=== PATIENT | female | born 1970 | race Caucasian/White ===

== ENCOUNTER 2018-11-05 22:21 | Emergency (ER) | payer BC ==
[~2018-11-05] VITALS: Ht 175.3 cm; Wt 81.0 kg
[~2018-11-05 22:21] MED LIST: CYCL-1 PO
[2018-11-05] MEDS ORDERED: normal saline 1000ML IV soln IVB ONE ×2 (22:35→22:40)
[2018-11-05 22:53] LABS: BASOPHILS % (AUTO) 0.8 % (0-1); EOSINOPHILS # (AUTO) 0.1 X10'3 (0-0.9); EOSINOPHILS % (AUTO) 2.2 % (0-6); HEMATOCRIT 36.3 % (35.0-45.0); HEMOGLOBIN 12.4 g/dl (12.0-16.0); LYMPHOCYTES # (AUTO) 1.1 X10'3 (1.1-4.8); LYMPHOCYTES % (AUTO) 22.1 % (21-51); MEAN CORPUSCULAR HEMOGLOBIN 30.5 PG (27.0-31.0); MEAN CORPUSCULAR HGB CONC 34.1 g/dL (33.0-36.5); MEAN CORPUSCULAR VOLUME 89.4 FL (78-98); MEAN PLATELET VOLUME 8.2 FL (7.4-10.4); MONOCYTES # (AUTO) 0.4 X10'3 (0-0.9); MONOCYTES % (AUTO) 7.7 % (2-12); NEUTROPHILS # (AUTO) 3.3 X10'3 (1.8-7.7); NEUTROPHILS % (AUTO) 67.2 % (42-75); PLATELET COUNT 242 X10'3 (140-440); RED BLOOD COUNT 4.06 X10'6 (4.20-5.60); RED CELL DISTRIBUTION WIDTH 12.7 % (11.5-14.5)
[2018-11-05 23:17] LABS: ALANINE AMINOTRANSFERASE 27 U/L (12-78); ALBUMIN 3.6 G/DL (3.4-5.0); ALBUMIN/GLOBULIN RATIO 1.2 (1.1-1.5); ALKALINE PHOSPHATASE 43 IU/L (46-116); ANION GAP 12 (8-16); ASPARTATE AMINO TRANSFERASE 26 U/L (10-37); BILIRUBIN,TOTAL 1.1 MG/DL (0.1-1.0); BLOOD UREA NITROGEN 7 MG/DL (7-18); BUN/CREATININE RATIO 9.6 (6.6-38.0); CALCIUM 8.5 MG/DL (8.5-10.1); CHLORIDE 90 MMOL/L (99-107); CKMB RELATIVE INDEX 1.1 RATIO (0-2.5); CREATINE KINASE 298 U/L (26-192); CREATININE 0.73 MG/DL (0.40-0.90); GLUCOSE 124 MG/DL (70-104); SODIUM 121 MMOL/L (135-145); TOTAL CARBON DIOXIDE 19.5 MMOL/L (24-32); TOTAL PROTEIN 6.7 G/DL (6.4-8.2); TROPONIN I < 0.04 NG/ML (0.0-0.05); eGFR 86 ML/MIN
[2018-11-05 23:32] LABS: POTASSIUM 2.4 MMOL/L (3.5-5.1)
[2018-11-05] MEDS ORDERED: potassium 10mEq/100ml NS w/LIDOcaine (10mg/bag) IV SCH (23:35)
[2018-11-05] MEDS ORDERED: potassium Cl 20 mEq SR tablet PO ONE (23:35)
[2018-11-05] MEDS: magnesium 2GM in 50ml NS 50 ML IV SCH (23:50)
[2018-11-05 23:51] LABS: MAGNESIUM 1.4 MG/DL (1.5-2.4)
[2018-11-05] MEDS: potassium Cl 10 mEq/100mL bag IV SCH (23:51)
[2018-11-06] MEDS ORDERED: potassium Cl 20 mEq SR tablet PO ONE (00:20)
[2018-11-06] MEDS: magnesium 2GM in 50ml NS 50 ML IV SCH (00:35)
[2018-11-06 00:44] VITALS: BP 129/51
[2018-11-06] MEDS: potassium Cl 10 mEq/100mL bag IV SCH (01:10)
[2018-11-06] MEDS ORDERED: POTA20TA19 PO (01:50)
== END 2018-11-06 02:26 | disposition home or self-care (01) ==
LOC: ER 22:21
DX: T67.9XXA Effect of heat and light, unspecified, initial encounter (principal); E87.6 Hypokalemia; R53.1 Weakness; E61.2 Magnesium deficiency; Z88.1 Allergy status to other antibiotic agents; Y92.89 Other specified places as the place of occurrence of the external cause
CPT/HCPCS: 36415; 71045; 80053; 82550; 82553; 83735; 84484; 85025; 93005; 96361; 96365; 96366; 96368; 99284; J3475; J3480; J7030